=== PATIENT | male | born 1995 | race Caucasian/White ===

== ENCOUNTER 2020-03-17 17:47 | Emergency (ER) | payer OTHER ==
[~2020-03-17] VITALS: Ht 188 cm; Wt 86.2 kg
== END 2020-03-17 21:46 | disposition home or self-care (01) ==
LOC: ER 17:47
DX: A90 Dengue fever [classical dengue] (principal); D69.49 Other primary thrombocytopenia; Z20.828 Contact with and (suspected) exposure to other viral communicable diseases; R53.83 Other fatigue

== ENCOUNTER 2020-07-27 21:58 | Emergency (ER) | payer OTHER ==
[~2020-07-27] VITALS: Ht 188 cm; Wt 89.4 kg
[2020-07-28] MEDS ORDERED: NAPROXEN500 MG PO (00:28)
[2020-07-28] MEDS ORDERED: ORPHENADRINE C100 MG PO (00:28)
== END 2020-07-28 00:36 | disposition home or self-care (01) ==
LOC: ER 21:58
DX: R07.89 Other chest pain (principal); M94.0 Chondrocostal junction syndrome [Tietze]

== ENCOUNTER 2021-06-26 07:26 | Emergency (ER) | payer OTHER ==
[~2021-06-26] VITALS: Ht 188 cm; Wt 95.3 kg
[~2021-06-26 07:26] MED LIST: NAPROXEN500 MG PO; ORPHENADRINE C100 MG PO
[2021-06-26] MEDS ORDERED: ZYRTEC10 MG PO (11:11)
== END 2021-06-26 11:37 | disposition home or self-care (01) ==
LOC: ER 07:26
DX: R09.81 Nasal congestion (principal); Z20.822 Contact with and (suspected) exposure to COVID-19

== ENCOUNTER 2021-07-06 14:36 | Emergency (ER) | payer OTHER ==
[~2021-07-06] VITALS: Ht 188 cm; Wt 95.3 kg
[~2021-07-06 14:36] MED LIST changes: +ZYRTEC10 MG PO
== END 2021-07-06 18:28 | disposition home or self-care (01) ==
LOC: ER 14:36
DX: R10.9 Unspecified abdominal pain (principal)

== ENCOUNTER 2022-02-27 09:01 | Emergency (ER) | payer OTHER ==
[~2022-02-27] VITALS: Ht 188 cm; Wt 95.3 kg
== END 2022-02-27 10:51 | disposition home or self-care (01) ==
LOC: ER 09:01
DX: J20.9 Acute bronchitis, unspecified (principal)

== ENCOUNTER 2022-08-10 07:49 | Outpatient (CLI) | payer OTHER | END 2022-08-10 07:54 | disposition home or self-care (01) | LOC: NUCLEAR 07:49 | PROVIDERS: ATTEND Internal Medicine | DX: C80.1 Malignant (primary) neoplasm, unspecified (principal); R91.8 Other nonspecific abnormal finding of lung field; K76.89 Other specified diseases of liver; Z80.0 Family history of malignant neoplasm of digestive organs ==

== ENCOUNTER 2023-03-02 10:33 | Emergency (ER) | payer OTHER ==
[~2023-03-02] VITALS: Ht 188 cm; Wt 44.7 kg
[2023-03-02 16:46] LABS: HEMATOCRIT 43.4 % (39.0-48.0); HEMOGLOBIN 14.9 g/dL (13-16.00); MEAN CELL VOLUME 85.1 fL (80.0-100.00); MEAN CORPUSCULAR HEMOGLOBIN 29.3 pg (27.00-32.0); MEAN CORPUSCULAR HGB CONC 34.4 g/dl (32.0-36.0); PLATELET COUNT 233 K/uL (150-450); RED CELL DISTRIBUTION WIDTH 12.8 % (11.5-14.5)
[2023-03-02 17:00] LABS: PH,URINE 5.5 (5.0-8.0); URINE APPEARANCE Clear; URINE BILIRRUBIN Negative (NEGATIVE); URINE BLOOD Negative; URINE COLOR Dark Yellow; URINE GLUCOSE Negative (NEGATIVE); URINE LEUKOCYTE Negative; URINE NITRATE Negative; URINE PROTEIN Negative (NEGATIVE)
[2023-03-02 17:03] LABS: URINE BACTERIA 6.2 uL (0.0-1933); URINE EPITHELIAL CELLS 1.6 uL (0.0-38.8); URINE RBC 3.7 uL (0.0-20.8)
[2023-03-02 17:11] LABS: URINE WBC 1.6 uL (0.0-23.2)
[2023-03-02 17:40] LABS: ALBUMIN 4.3 gm/dL (3.4-5.0); BILIRUBIN TOTAL 0.77 mg/dL (0.3-1.2); CALCIUM 9.7 mg/dL (8.5-10.1); CREATININE SERUM 0.94 mg/dL (0.70-1.30); GFR 95.56; GLOBULINA 3.5 G/DL (2.4-3.5); POTASSIUM 3.7 mEq/L (3.5-5.1); TOTAL PROTEIN 7.8 gm/dL (6.4-8.2)
== END 2023-03-02 18:08 | disposition home or self-care (01) ==
LOC: ER 10:33
PROVIDERS: General Practice
DX: R53.83 Other fatigue (principal)

== ENCOUNTER 2023-03-03 10:49 | Outpatient (CLI) | payer OTHER | END 2023-03-03 10:53 | disposition home or self-care (01) | LOC: SONOGRAMA 10:49 | PROVIDERS: ATTEND Internal Medicine | DX: N20.0 Calculus of kidney (principal) ==

== ENCOUNTER 2025-01-08 13:57 | Emergency (ER) | payer OTHER ==
[~2025-01-08] VITALS: Ht 188 cm; Wt 90.7 kg
[2025-01-08] MEDS ORDERED: IRBESARTAN75 MG PO (14:20)
[2025-01-08] MEDS ORDERED: KETOROLAC TROMETHAMINE 30 MG VIAL ONE (15:40)
[2025-01-08] MEDS ORDERED: ORPHENADRINE CITRATE 30 MG/ML AMPUL ONE (15:40)
[2025-01-08] MEDS ORDERED: DEXAMETHASONE SODIUM PHOSPHATE 4 MG/ML VIAL ONE (15:41)
[2025-01-08] MEDS ORDERED: KETOROLAC TROMETHAMINE 30 MG VIAL IM ONE (15:45)
[2025-01-08] MEDS ORDERED: ORPHENADRINE CITRATE 30 MG/ML AMPUL IM ONE (15:45)
[2025-01-08] MEDS ORDERED: DEXAMETHASONE SODIUM PHOSP/PF 10 MG/ML VIAL IJ ONE (15:45)
[2025-01-08 16:04] LABS: BASO % 0.7 % (0.1-1.2); EOS # 0.07 (0.04-0.54); EOS % 0.9 % (0.7-7.0); LYMPH # 2.65 (1.18-3.74); LYMPH % 35.9 % (19.3-53.1); MEAN PLATELET VOLUME 9.50 fl (9.4-12.4); MONO # 0.51 (0.24-0.82); MONO % 6.9 % (4.7-12.5); NEUT # 4.09 (1.56-6.13); NEUT % 55.3 % (34.0-71.1); RED CELL DISTRIBUTION WIDTH 12.8 % (11.6-14.4)
[2025-01-08 17:15] LABS: ALT/SGPT 111.0 U/L (12-78); AST/SGOT 35.0 U/L (15-37); BILIRUBIN TOTAL 0.49 mg/dL (0.3-1.2); BUN CREA RATIO 11.0 (7.0-25.0); CREATININE SERUM 0.94 mg/dL (0.70-1.30); GFR 94.23; GLOBULINA 3.0 G/DL (2.4-3.5); GLUCOSE FASTING 88.0 mg/dL (65-100); OSMOLALITY SERUM 285.0 MOSM/KG (275-295)
[2025-01-08] MEDS ORDERED: KETO10TA2 PO (20:11)
[2025-01-08] MEDS ORDERED: NORFLEX100MG PO (20:11)
[2025-01-08 20:19] VITALS: BP 119/76; O2SAT 98
[2025-01-08 23:12] LABS: CKMB 1.4 NG/ML (0.5-3.6)
== END 2025-01-08 20:20 | disposition home or self-care (01) ==
LOC: ER 13:57
PROVIDERS: Student in an Organized Health Care Education/Training Program
DX: M94.0 Chondrocostal junction syndrome [Tietze] (principal); R07.89 Other chest pain; I10 Essential (primary) hypertension

== ENCOUNTER 2025-02-03 03:29 | Emergency (ER) | payer OTHER ==
[~2025-02-03] VITALS: Ht 188 cm; Wt 95.3 kg
[~2025-02-03 03:29] MED LIST changes: +IRBESARTAN75 MG PO; +KETO10TA2 PO; +NORFLEX100MG PO
[2025-02-03] MEDS ORDERED: CEFTRIAXONE SODIUM 1,000 MG VIAL IM STA (03:47)
[2025-02-03] MEDS ORDERED: METHYLPREDNISOLONE SOD SUCC 125 MG VIAL IM STA (03:47)
[2025-02-03] MEDS ORDERED: AVAPRO150 MG PO (03:50)
[2025-02-03] MEDS ORDERED: CEFTRIAXONE SODIUM 1,000 MG VIAL ONE (04:21)
[2025-02-03] MEDS ORDERED: METHYLPREDNISOLONE SOD SUCC 40 MG VIAL ONE (04:21)
[2025-02-03 04:59] LABS: BASO % 0.6 % (0.1-1.2); EOS # 0.09 (0.04-0.54); EOS % 1.4 % (0.7-7.0); LYMPH # 3.01 (1.18-3.74); LYMPH % 48.2 % (19.3-53.1); MEAN PLATELET VOLUME 9.60 fl (9.4-12.4); MONO # 0.43 (0.24-0.82); MONO % 6.9 % (4.7-12.5); NEUT # 2.67 (1.56-6.13); NEUT % 42.7 % (34.0-71.1); RED CELL DISTRIBUTION WIDTH 12.3 % (11.6-14.4)
[2025-02-03 05:34] LABS: URINE APPEARANCE Clear; URINE BILIRRUBIN Negative (NEGATIVE); URINE BLOOD Negative; URINE COLOR Yellow; URINE GLUCOSE Negative (NEGATIVE); URINE KETONE Negative (NEGATIVE); URINE LEUKOCYTE Negative; URINE NITRATE Negative; URINE PROTEIN Negative (NEGATIVE); URINE UROBILINOGEN 0.2 E.U./dl
[2025-02-03 05:36] LABS: URINE BACTERIA 2.3 uL (0.0-1933); URINE CAST 0.00 uL (0.0-1.40); URINE EPITHELIAL CELLS 0.1 uL (0.0-38.8); URINE RBC 0.7 uL (0.0-20.8); URINE WBC 0.7 uL (0.0-23.2)
[2025-02-03 05:48] LABS: COVID-19 AG NEGATIVE (NEGATIVE)
[2025-02-03 06:33] LABS: BUN CREA RATIO 10.0 (7.0-25.0); CREATININE SERUM 0.91 mg/dL (0.70-1.30); GFR 97.82; GLUCOSE FASTING 102.0 mg/dL (65-100); OSMOLALITY SERUM 286.0 MOSM/KG (275-295)
[2025-02-03] MEDS ORDERED: ALBUTEROL SULFATE 3 ML/2.5 MG AMPUL.NEB IH STA (06:40)
[2025-02-03] MEDS ORDERED: ALBUTEROL SULFATE 3 ML/2.5 MG AMPUL.NEB IH ONE (07:47)
[2025-02-03] MEDS ORDERED: BENZONATATE200 M1 PO (08:13)
[2025-02-03] MEDS ORDERED: SINGULAIR10 MG PO (08:13)
[2025-02-03] MEDS ORDERED: PEPCID AC20 MG PO (08:13)
[2025-02-03] MEDS ORDERED: LEVALBUTER0.63 MG/3 IH (08:13)
[2025-02-03] MEDS ORDERED: KETOROLAC TROMETHAMINE 30 MG VIAL ONE (08:14)
[2025-02-03] MEDS ORDERED: BENZONATATE 200 MG CAPSULE PO ONE (08:15)
[2025-02-03] MEDS ORDERED: KETOROLAC TROMETHAMINE 60 MG VIAL IM ONE (08:15)
== END 2025-02-03 08:39 | disposition home or self-care (01) ==
LOC: ER 03:29
PROVIDERS: General Practice
DX: J45.909 Unspecified asthma, uncomplicated (principal); R05.9 Cough, unspecified; R07.89 Other chest pain; Z20.822 Contact with and (suspected) exposure to COVID-19